=== PATIENT | female | born 1950 | race Hispanic/Latino ===

== ENCOUNTER 2018-08-24 07:20 | Observation (INO) | payer BC, OTHER ==
[2018-08-24 07:47] VITALS: BMI 32.8
--- NOTE | 2018-08-24 08:04 | ED PDOC ---
HPI: Chest Pain Time Seen by Provider: 08/24/18 07:37 Chief Complaint (Nursing): Chest Pain Chief Complaint (Provider): Chest discomfort History Per: Patient History/Exam Limitations: no limitations Onset/Duration Of Symptoms: Hrs (this morning) Current Symptoms Are (Timing): Still Present Associated Symptoms: denies: Dyspnea Additional Complaint(s): Beth Thurston is a 68 year old female, with no significant past medical history and not currently taking medications, who presents to the emergency department with onset for what she feels like is her heart pounding after it woke her up this morning. Patient states its not pain and not associated with shortness of breath. Pain does not radiate but is causing her severe discomfort. Patient reports her anxiety has increased lately because her recently . She has been following her PMD for gastroenteritis but states symptoms does not feel like gastroenteritis. She denies any other medical complaints. PMD: Dr. Germán Mallory, Past Medical History Reviewed: Historical Data, Nursing Documentation, Vital Signs Vital Signs: Last Vital Signs Temp 97 F L 08/24/18 07:42 Pulse 88 08/24/18 07:42 Resp 19 08/24/18 07:42 BP 104/50 L 08/24/18 07:42 Pulse Ox 100 08/24/18 07:42 - Medical History PMH: Gastritis - Surgical History Surgical History: No Surg Hx - Family History Family History: States: Unknown Family Hx - Home Medications Home Medications: Ambulatory Orders Medication Instructions Recorded No Known Home Med 12/22/14 - Allergies Allergies/Adverse Reactions: Allergies Allergy/AdvReac Type Severity Reaction Status Date / Time latex Allergy RASH Verified 08/24/18 07:51 Penicillins Allergy RASH Verified 08/24/18 07:52 Review of Systems ROS Statement: Except As Marked, All Systems Reviewed And Found Negative Cardiovascular: Positive for: Other (chest discomfort) Respiratory: Negative for: Shortness of Breath Psych: Positive for: Anxiety Physical Exam - Reviewed Nursing Documentation Reviewed: Yes Vital Signs Reviewed: Yes - Physical Exam Appears: Positive for: No Acute Distress Head Exam: Positive for: ATRAUMATIC, NORMOCEPHALIC Skin: Positive for: Normal Color, Warm, Dry Eye Exam: Positive for: Normal appearance, EOMI, PERRL Neck: Positive for: Painless ROM, Supple Cardiovascular/Chest: Positive for: Regular Rate, Rhythm. Negative for: Murmur Respiratory: Positive for: Normal Breath Sounds. Negative for: Respiratory Distress Gastrointestinal/Abdominal: Positive for: Normal Exam, Soft. Negative for: Tenderness, Guarding, Rebound Back: Positive for: Normal Inspection. Negative for: Vertebral Tenderness Extremity: Positive for: Normal ROM (upper and lower extremities). Negative for: Calf Tenderness, Deformity, Swelling Neurologic/Psych: Positive for: Alert, Oriented, Gait (steady) - Laboratory Results Result Diagrams: 08/24/18 08:38 08/24/18 08:38 - ECG Interpretation Of ECG: EKG shows PACs but no ST elevation O2 Sat by Pulse Oximetry: 100 (RA) Pulse Ox Interpretation: Normal Medical Decision Making Medical Decision Makin:37 Initial Impression: work up for cardiac etiology of chest discomfort. No indication of STEMI at this point. Patient on manager cardiac will give Nitro for chest pain, labs being sent, cxr and reassess patient. Initial Plan: --Type and screen --VBG --EKG --BNP --CMP --Lipase --Troponin I --CBC w/ differential --PTT --PT --Chest portable [RAD] --Nitrostat SL Tab 0.4mg SL --Pepcid 40 mg IVP --Reevaluation -Labs showed no clinical significant abnormalities. 09:29 -Troponin within normal limites. BNP slightly elevated. Patient reports relief of feeling of heart pounding. However, has a LUQ pain. Patient reports a worsening of her gastritis. At this point heart score of 4 so will admit patient for observation and will get a CT abdomen/pelvis due to exacerbation of LUQ pain. 11:45 -Patient seen by Dr. Terry who agrees patient should be held for obs, no acute intervention needed at this time. Will hold off on CT abdomen so that patient can remain on the manager cardiac. Abdomen CT is not urgent at this point. -Spoke with Dr. Joseph who requests repeat troponin at x4 hrs and echo. Orders to be placed and patient to be admitted. Scribe Attestation: Documented by Roberto Ochoa, acting as a scribe for Kim Kwon MD. Provider Scribe Attestation: All medical record entries made by the Scribe were at my direction and personally dictated by me. I have reviewed the chart and agree that the record accurately reflects my personal performance of the history, physical exam, medical decision making, and the department course for this patient. I have also personally directed, reviewed, and agree with the discharge instructions and disposition. Disposition - Disposition
[2018-08-24 08:17] LABS: VENOUS BLOOD GAS BASE EXCESS 2.3 mmol/L (0.0-2.0); VENOUS BLOOD GAS PCO2 39 mmHg (40-60); VENOUS BLOOD GAS PO2 40 mm/Hg (30-55); VENOUS BLOOD PH 7.44 (7.32-7.43)
[2018-08-24 08:42] LABS: BASO # 0.1 K/uL (0.0-0.2); BASO % 0.7 % (0.0-2.0); EOS % 0.6 % (0.0-4.0); HEMOGLOBIN 14.1 g/dL (12.0-16.0); LYMPH # 1.2 K/uL (1.0-4.3); LYMPH % 16.1 % (20.0-40.0); MEAN CELL VOLUME 90.3 fl (81.0-99.0); MEAN CORPUSCULAR HGB CONC 34.3 g/dL (33.0-37.0); MONO # 0.6 K/uL (0.0-0.8); MONO % 7.6 % (0.0-10.0); NEUT # 5.6 K/uL (1.8-7.0); RBC 4.55 Mil/uL (3.80-5.20); RED CELL DISTRIBUTION WIDTH 13.8 % (11.5-14.5); WHITE BLOOD COUNT 7.5 K/uL (4.8-10.8)
[2018-08-24 08:50] LABS: PROTHROMBIN TIME 11.6 Seconds (9.8-13.1)
[2018-08-24 08:52] LABS: ALB/GLOB RATIO 1.2 (1.0-2.1); ALBUMIN 4.1 g/dL (3.5-5.0); ALT/SGPT 21 U/L (9-52); AST/SGOT 26 U/L (14-36); BLOOD UREA NITROGEN 23 mg/dl (7-17); CALCIUM 9.7 mg/dL (8.4-10.2); GFR NON-AFRICAN AMERICAN > 60; LIPASE 155 U/L (23-300); PARTIAL THROMBOPLASTIN TIME 28.7 Seconds (25.6-37.1)
[2018-08-24 09:03] LABS: B-TYPE NATRIURETIC PEPTIDE 1840 pg/ml (0-900)
--- NOTE | 2018-08-24 09:34 | RAD ---
Date of service: 08/24/2018 HISTORY: possible admission COMPARISON: No prior. FINDINGS: LUNGS: Increased reticular markings are questioned at the medial right base, potentially a function of crowding of the bronchovascular markings given rotation of the patient toward the left. No airspace disease bilaterally. PLEURA: No significant pleural effusion identified, no pneumothorax apparent. CARDIOVASCULAR: Normal. OSSEOUS STRUCTURES: No significant abnormalities. VISUALIZED UPPER ABDOMEN: Normal. OTHER FINDINGS: None. IMPRESSION: Reticular markings are somewhat prominent the medial right base could be a function of crowding of the bronchovascular markings related to left obliquity. No alveolitis pleural effusion or pneumothorax bilaterally. No pulmonary vascular congestion.
[2018-08-24] MEDS ORDERED: Iohexol 240 (50 ml) PO ONE (09:40)
--- NOTE | 2018-08-24 11:04 | CARD ---
APPROVED REPORT Date of service: 08/24/2018 EKG Measurement Heart [id number] <Conclusion> Sinus rhythm with 1st degree AV block with premature atrial complexes Right bundle branch block Left anterior fascicular block Bifascicular block Abnormal ECG
--- NOTE | 2018-08-24 11:58 | CP.PCM.CON ---
History of Present Illness - History of Present Illness History of Present Illness: This 68-year-old female came into the hospital complaining of chest tightness which occurred while she was resting in bed. The patient has a history of right breast malignancy for which she underwent mastectomy followed by chemotherapy 15 years back and has not had any recurrence. Follow-up indicates that this malignancy is in remission. She is fairly active and goes up-and-down flight of stairs and activities of daily living without any chest discomfort. She is not a smoker or diabetic and she is not a hypertensive. There is no significant family history of vascular disease. She gives history of gastroesophageal reflux. This discomfort did not radiate to her jaw or arms. It was not accompanied by any perspiration nausea vomiting or sudden shortness of breath. She does describe a brief period of palpitations which spontaneously resolved. Physical examination shows an elderly overweight female who is anxious but quite comfortable at rest and can lay virtually flat and carry on a conversation. She has a heart rate of 82 bpm regular and a blood pressure of 134/74 mmHg. Her j ugular venous pressure was not elevated and there was no edema over lower extremities. Pedal pulses were well felt. There were no carotid bruits. There was evidence of right mastectomy. Thyroid was not enlarged. The apex was not palpable. The first and second heart sounds were normal. There was no murmur or gallop. There were no rales. Her abdomen was soft and liver and spleen are not palpable. Her electro-cardial gram showed sinus rhythm with evidence of a right bundle branch block and a left axis deviation. No Q waves were detected on the cardiogram. Her cardiac enzymes show a normal troponin level. The rest of her labs were noted. Impression: Atypical chest pain. No evidence of acute coronary syndrome in the form of ST changes on electrocardiogram suggestive of ischemia or abnormal tro ponins. The patient at this juncture is free of chest discomfort and her vital signs are stable. Follow-up cardiac enzymes will be drawn. She will be observed on a telemetry floor. Past Patient History - Infectious Disease Hx of Infectious Diseases: None - Past Social History Smoking Status: Never Smoked - GASTROINTESTINAL Hx Gastritis: Yes - PSYCHIATRIC Hx Substance Use: No - SURGICAL HISTORY Hx Mastectomy: Yes (rt. breast) Meds Allergies/Adverse Reactions: Allergies Allergy/AdvReac Type Severity Reaction Status Date / Time latex Allergy RASH Verified 08/24/18 07:51 Penicillins Allergy RASH Verified 08/24/18 07:52 Results - Vital Signs Recent Vital Signs: Last Vital Signs Temp 98.1 F 08/24/18 11:17 Pulse 101 H 08/24/18 11:17 Resp 16 08/24/18 11:17 BP 120/49 L 08/24/18 11:17 Pulse Ox 95 08/24/18 11:17 - Labs Result Diagrams: 08/24/18 08:38 08/24/18 08:38 Labs: Laboratory Results - last 24 hr 08/24/18 08/24/18 08/24/18 08:14 08:38 08:38 WBC 7.5 RBC 4.55 Hgb 14.1 Hct 41.1 MCV 90.3 MCH 31.0 MCHC 34.3 RDW 13.8 Plt Count 218 MPV 8.0 Neut % (Auto) 75.0 Lymph % (Auto) 16.1 L [place] % (Auto) 7.6 Eos % (Auto) 0.6 Baso % (Auto) 0.7 Neut # (Auto) 5.6 Lymph # (Auto) 1.2 [place] # (Auto) 0.6 Eos # (Auto) 0.0 Baso # (Auto) 0.1 PT INR APTT pO2 40 VBG pH 7.44 H VBG pCO2 39 L VBG HCO3 26.2 VBG Total CO2 27.7 VBG O2 Sat (Calc) 80.3 H VBG Base Excess 2.3 H VBG Potassium 3.6 Sodium 137.0 139 Chloride 104.0 104 Glucose 108 H Lactate 1.9 FiO2 21.0 Potassium 4.0 Carbon Dioxide 26 Anion Gap 13 BUN 23 H Creatinine 0.6 L Est GFR ( Amer) > 60 Est GFR (Non-Af Amer) > 60 POC Glucose (mg/dL) Random Glucose 108 H Calcium 9.7 Total Bilirubin 0.7 AST 26 ALT 21 Alkaline Phosphatase 47 Troponin I 0.0150 NT-Pro-B Natriuret Pep 1840 H Total Protein 7.4 Albumin 4.1 Globulin 3.3 Albumin/Globulin Ratio 1.2 Lipase 155 Venous Blood Potassium 3.6 Blood Type Blood Type Confirm Antibody Screen BBK History Checked 08/24/18 08/24/18 08/24/18 08:38 08:38 08:48 WBC RBC Hgb Hct MCV MCH MCHC RDW Plt Count MPV Neut % (Auto) Lymph % (Auto) [place] % (Auto) Eos % (Auto) Baso % (Auto) Neut # (Auto) Lymph # (Auto) [place] # (Auto) Eos # (Auto) Baso # (Auto) PT 11.6 INR 1.0 APTT 28.7 pO2 VBG pH VBG pCO2 VBG HCO3 VBG Total CO2 VBG O2 Sat (Calc) VBG Base Excess VBG Potassium Sodium Chloride Glucose Lactate FiO2 Potassium Carbon Dioxide Anion Gap BUN Creatinine Est GFR ( Amer) Est GFR (Non-Af Amer) POC Glucose (mg/dL) 72 Random Glucose Calcium Total Bilirubin AST ALT Alkaline Phosphatase Troponin I NT-Pro-B Natriuret Pep Total Protein Albumin Globulin Albumin/Globulin Ratio Lipase Venous Blood Potassium Blood Type A POSITIVE Blood Type Confirm Antibody Screen Negative BBK History Checked No verified bt 08/24/18 09:02 WBC RBC Hgb Hct MCV MCH MCHC RDW Plt Count MPV Neut % (Auto) Lymph % (Auto) [place] % (Auto) Eos % (Auto) Baso % (Auto) Neut # (Auto) Lymph # (Auto) [place] # (Auto) Eos # (Auto) Baso # (Auto) PT INR APTT pO2 VBG pH VBG pCO2 VBG HCO3 VBG Total CO2 VBG O2 Sat (Calc) VBG Base Excess VBG Potassium Sodium Chloride Glucose Lactate FiO2 Potassium Carbon Dioxide Anion Gap BUN Creatinine Est GFR ( Amer) Est GFR (Non-Af Amer) POC Glucose (mg/dL) Random Glucose Calcium Total Bilirubin AST ALT Alkaline Phosphatase Troponin I NT-Pro-B Natriuret Pep Total Protein Albumin Globulin Albumin/Globulin Ratio Lipase Venous Blood Potassium Blood Type Blood Type Confirm A POSITIVE Antibody Screen BBK History Checked
[2018-08-24] MEDS: Enoxaparin 40 mg Syringe SC SCH (12:35)
[2018-08-24] MEDS ORDERED: Influenza Vaccine 60 MCG/0.5 ML SYR (3 yr & up) IM ONE (15:42)
[2018-08-25 05:02] VITALS: O2SAT 100
--- NOTE | 2018-08-25 07:29 | CP.PCM.HP ---
<Sultan Fani - Last Filed: 08/25/18 10:16> History of Present Illness - History of Present Illness History of Present Illness: 68 yo female pmhx gastritis and breast CA s/p right breast mastectomy >15 yrs ago presented to ED yesterday with complaints of palpitation and chest tightness after she woke up this morning. Denies any chest pain radiation to arm or neck. Denies shortness of breath, dyspnea on exertion, nausea, vomiting, headache, dizziness or focal weakness. Denies any hx CAD, DMII or HTN. Patient is admitted to telemetry for evaluation of chest pain. ROS: all 12 systems reviewed and negative except as mentioned in HPI PMHX: gastritis, breast CA PSHX: right breast mastectomy >15 yrs ago Social hx: denies smoking cigarettes, drinks socially. Denies any recreational drug uses Family hx: denies family hx DMII, HTN or CAD Medications: none Allergies: Penicillin, latex Present on Admission - Present on Admission Any Indicators Present on Admission: No Review of Systems - Review of Systems All systems: reviewed and no additional remarkable complaints except (as mentioned in HPI) Past Patient History - Infectious Disease Hx of Infectious Diseases: None - Past Medical History & Family History Past Medical History?: Yes - Past Social History Smoking Status: Never Smoked - CARDIAC Hx Cardiac Disorders: No - PULMONARY Hx Respiratory Disorders: No - NEUROLOGICAL Hx Neurological Disorder: No - HEENT Hx HEENT Problems: No - RENAL Hx Chronic Kidney Disease: No - ENDOCRINE/METABOLIC Hx Endocrine Disorders: No - HEMATOLOGICAL/ONCOLOGICAL Hx Blood Disorders: No Hx AIDS: No Hx Human Immunodeficiency Virus (HIV): No - INTEGUMENTARY Hx Dermatological Problems: No - MUSCULOSKELETAL/RHEUMATOLOGICAL Hx Musculoskeletal Disorders: No Hx Falls: No - GASTROINTESTINAL Hx Gastrointestinal Disorders: Yes Hx Gastritis: Yes - GENITOURINARY/GYNECOLOGICAL Hx Genitourinary Disorders: No - PSYCHIATRIC Hx Psychophysiologic Disorder: No Hx Substance Use: No - SURGICAL HISTORY Hx Surgeries: Yes Hx Mastectomy: Yes (right breast) - ANESTHESIA Hx Anesthesia: Yes Hx Anesthesia Reactions: No Hx Malignant Hyperthermia: No Has any member of the family had a problem w/ anesthesia?: No Meds Allergies/Adverse Reactions: Allergies Allergy/AdvReac Type Severity Reaction Status Date / Time latex Allergy RASH Verified 08/24/18 07:51 Penicillins Allergy RASH Verified 08/24/18 07:52 Physical Exam - Constitutional Appears: Non-toxic, No Acute Distress - Head Exam Head Exam: ATRAUMATIC, NORMOCEPHALIC - Eye Exam Eye Exam: EOMI, Normal appearance, PERRL - ENT Exam ENT Exam: Mucous Membranes Moist - Neck Exam Neck exam: Positive for: Full Rom, Normal Inspection - Respiratory Exam Respiratory Exam: Clear to Auscultation Bilateral, NORMAL BREATHING PATTERN. absent: Rhonchi, Wheezes - Cardiovascular Exam Cardiovascular Exam: REGULAR RHYTHM, +S1, +S2 - GI/Abdominal Exam GI & Abdominal Exam: Normal Bowel Sounds, Soft. absent: Tenderness - Extremities Exam Extremities exam: Positive for: normal inspection. Negative for: calf tenderness, pedal edema - Neurological Exam Neurological exam: Alert, CN II-XII Intact, Oriented x3 - Psychiatric Exam Psychiatric exam: Normal Affect, Normal Mood - Skin Skin Exam: Normal Color, Warm Results - Vital Signs Recent Vital Signs: Last Vital Signs Temp 97.8 F 08/25/18 05:00 Pulse 73 08/25/18 05:00 Resp 18 08/25/18 05:00 BP 117/74 08/25/18 05:00 Pulse Ox 100 08/25/18 05:00 - Labs Result Diagrams: 08/24/18 08:38 08/24/18 08:38 Labs: Laboratory Results - last 24 hr 08/24/18 08/24/18 08/24/18 08:14 08:38 08:38 WBC 7.5 RBC 4.55 Hgb 14.1 Hct 41.1 MCV 90.3 MCH 31.0 MCHC 34.3 RDW 13.8 Plt Count 218 MPV 8.0 Neut % (Auto) 75.0 Lymph % (Auto) 16.1 L [place] % (Auto) 7.6 Eos % (Auto) 0.6 Baso % (Auto) 0.7 Neut # (Auto) 5.6 Lymph # (Auto) 1.2 [place] # (Auto) 0.6 Eos # (Auto) 0.0 Baso # (Auto) 0.1 PT INR APTT pO2 40 VBG pH 7.44 H VBG pCO2 39 L VBG HCO3 26.2 VBG Total CO2 27.7 VBG O2 Sat (Calc) 80.3 H VBG Base Excess 2.3 H VBG Potassium 3.6 Sodium 137.0 139 Chloride 104.0 104 Glucose 108 H Lactate 1.9 FiO2 21.0 Potassium 4.0 Carbon Dioxide 26 Anion Gap 13 BUN 23 H Creatinine 0.6 L Est GFR ( Amer) > 60 Est GFR (Non-Af Amer) > 60 POC Glucose (mg/dL) Random Glucose 108 H Calcium 9.7 Total Bilirubin 0.7 AST 26 ALT 21 Alkaline Phosphatase 47 Troponin I 0.0150 NT-Pro-B Natriuret Pep 1840 H Total Protein 7.4 Albumin 4.1 Globulin 3.3 Albumin/Globulin Ratio 1.2 Lipase 155 Venous Blood Potassium 3.6 Blood Type Blood Type Confirm Antibody Screen BBK History Checked 08/24/18 08/24/18 08/24/18 08:38 08:38 08:48 WBC RBC Hgb Hct MCV MCH MCHC RDW Plt Count MPV Neut % (Auto) Lymph % (Auto) [place] % (Auto) Eos % (Auto) Baso % (Auto) Neut # (Auto) Lymph # (Auto) [place] # (Auto) Eos # (Auto) Baso # (Auto) PT 11.6 INR 1.0 APTT 28.7 pO2 VBG pH VBG pCO2 VBG HCO3 VBG Total CO2 VBG O2 Sat (Calc) VBG Base Excess VBG Potassium Sodium Chloride Glucose Lactate FiO2 Potassium Carbon Dioxide Anion Gap BUN Creatinine Est GFR ( Amer) Est GFR (Non-Af Amer) POC Glucose (mg/dL) 72 Random Glucose Calcium Total Bilirubin AST ALT Alkaline Phosphatase Troponin I NT-Pro-B Natriuret Pep Total Protein Albumin Globulin Albumin/Globulin Ratio Lipase Venous Blood Potassium Blood Type A POSITIVE Blood Type Confirm Antibody Screen Negative BBK History Checked No verified bt 08/24/18 08/24/18 09:02 13:23 WBC RBC Hgb Hct MCV MCH MCHC RDW Plt Count MPV Neut % (Auto) Lymph % (Auto) [place] % (Auto) Eos % (Auto) Baso % (Auto) Neut # (Auto) Lymph # (Auto) [place] # (Auto) Eos # (Auto) Baso # (Auto) PT INR APTT pO2 VBG pH VBG pCO2 VBG HCO3 VBG Total CO2 VBG O2 Sat (Calc) VBG Base Excess VBG Potassium Sodium Chloride Glucose Lactate FiO2 Potassium Carbon Dioxide Anion Gap BUN Creatinine Est GFR ( Amer) Est GFR (Non-Af Amer) POC Glucose (mg/dL) Random Glucose Calcium Total Bilirubin AST ALT Alkaline Phosphatase Troponin I 0.0160 NT-Pro-B Natriuret Pep Total Protein Albumin Globulin Albumin/Globulin Ratio Lipase Venous Blood Potassium Blood Type Blood Type Confirm A POSITIVE Antibody Screen BBK History Checked Assessment & Plan - Assessment and Plan (Free Text) Assessment: Assessment: 68 yo female pmhx breast CA s/p right breast mastectomy >15 yrs ago presented to ED yesterday with complaints of palpitation and chest tightness after she woke up this morning. Patient is admitted to telemetry for evaluation of chest pain. Plan: Admit to orthodontic technician assistant vitals Cardiology Consult appreciated Dr. Terry Monitor serial of troponin x 3 EKG ECHO labs DVT prophylaxis Patient seen and examined with Dr. Joseph this morning. Sultan Mohr, [id number] <Justino Joseph - Last Filed: 08/26/18 20:35> Results - Vital Signs Recent Vital Signs: Last Vital Signs Temp 97.7 F 08/25/18 08:10 Pulse 75 08/25/18 09:00 Resp 20 08/25/18 08:10 BP 124/78 08/25/18 08:10 Pulse Ox 100 08/25/18 08:10 - Labs Result Diagrams: 08/24/18 08:38 08/24/18 08:38 Assessment & Plan - Assessment and Plan (Free Text) Assessment: Patient was personally seen and examined by me in rounds with residents. Available labs and diagnostic data reviewed. Case, Patient's condition and management plan discussed with residents in rounds. Agree with resident's progress note. Plan: As ordered.
[2018-08-25 08:10] VITALS: BP 124/78; RESP 20; TEMP 97.7
--- NOTE | 2018-08-25 09:26 | CARD ---
APPROVED REPORT Date of service: 08/25/2018 EKG Measurement Heart [id number] <Conclusion> Sinus rhythm with 1st degree AV block with occasional premature ventricular complexes Right bundle branch block Left anterior fascicular block Bifascicular block Abnormal ECG
[2018-08-25] MEDS: Enoxaparin 40 mg Syringe SC SCH (09:36)
--- NOTE | 2018-08-25 10:11 | CARD ---
APPROVED REPORT Date of service: 08/25/2018 EXAM: Two-dimensional and M-mode echocardiogram with Doppler and color Doppler. Other Information Quality : GoodRhythm : NSR INDICATION ELEVATED PRO BNP 2D DIMENSIONS IVSd1.09 (0.7-1.1cm)LVDd5.59 (3.9-5.9cm) LVOT Diameter1.87 (1.8-2.4cm)PWd1.17 (0.7-1.1cm) IVSs1.37 (0.8-1.2cm)LVDs4.68 (2.5-4.0cm) FS (%) 16.4 %PWs1.18 (0.8-1.2cm) M-Mode DIMENSIONS Left Atrium (MM)3.21 (2.5-4.0cm)IVSd0.85 (0.7-1.1cm) Aortic Root3.09 (2.2-3.7cm)LVDd7.06 (4.0-5.6cm) Aortic Cusp Exc.1.79 (1.5-2.0cm)PWd0.88 (0.7-1.1cm) IVSs1.44 cmFS (%) 22 % LVDs5.50 (2.0-3.8cm)PWs1.12 cm Mitral Valve E/A ratio0.0 TDI E/Lateral E'0.0E/Medial E'0.0 Tricuspid Valve TR Peak [id number] Peak Gr.16mmHg [id number] LEFT VENTRICLE The left ventricle is normal size. There is normal left ventricular wall thickness. Lv systolic function was moderately depressed.Lvef was -40% -40% There was moderate generalised hypokinesia Transmitral Doppler flow pattern is Grade I-abnormal relaxation pattern. RIGHT VENTRICLE The right ventricle is normal size. There is normal right ventricular wall thickness. The right ventricular systolic function is normal. ATRIA The left atrium size is normal. The right atrium size is normal. AORTIC VALVE The aortic valve is normal in structure. No aortic regurgitation is present. There is no aortic valvular stenosis. MITRAL VALVE Mitral annular calcification is mild to moderate. There is no evidence of mitral valve prolapse. There is no mitral valve stenosis. Mitral regurgitation is mild. TRICUSPID VALVE The tricuspid valve is normal in structure. There is mild tricuspid regurgitation. Right ventricular systolic pressure is estimated at 26 mmHg. There is no pulmonary hypertension. PULMONIC VALVE The pulmonary valve is normal in structure. There is no pulmonic valvular regurgitation. GREAT VESSELS The aortic root is normal in size. The IVC is normal in size and collapses >50% with inspiration. PERICARDIAL EFFUSION The pericardium appears normal. <Conclusion> The left ventricle is normal size. There is normal left ventricular wall thickness. There was moderate generalised hypokinesia Lv systolic function was moderately depressed.LVEF was -40% Transmitral Doppler flow pattern is Grade I-abnormal relaxation pattern.
--- NOTE | 2018-08-25 10:16 | CP.PCM.PN ---
Subjective - Date & Time of Evaluation Date of Evaluation: 08/25/18 Time of Evaluation: 08:40 - Subjective Subjective: The patient was symptom free overnight. She denied any further chest pains or shortness of breath. Her physical examination this morning shows a heart rate of 68 bpm regular and a blood pressure of 136/74 mmHg. Her jugular venous pressure was not elevated and there were no rales or gallop rhythm. Her electro-cardial gram this morning again shows sinus rhythm with a pattern of right bundle branch block and a left axis deviation. No fresh Q waves were detected on the cardiogram. A second set of troponin again was within normal limits. An acute coronary syndrome was ruled out. Review off her echocardiogram shows a moderately depressed left ventricular systolic function. There is no segmental regional wall motion abnormality. 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 The patient is hemodynamically stable and has no symptom pertaining to this finding. The patient may be allowed to return home and follow-up with her own physician. This finding can be managed as an outpatient. No particular new intervention need be undertaken at this juncture. Objective - Vital Signs/Intake and Output Vital Signs (last 24 hours): Temp Pulse Resp BP Pulse Ox 97.7 F 73 20 124/78 100 08/25/18 08:10 08/25/18 08:10 08/25/18 08:10 08/25/18 08:10 08/25/18 08:10 - Medications Medications: Current Medications Aspirin (Aspirin Chewable) 81 mg PO DAILY [facility] Last Admin: 08/25/18 09:35 Dose: 81 mg Enoxaparin Sodium (Lovenox) 40 mg SC DAILY [facility]; Protocol Last Admin: 08/25/18 09:36 Dose: 40 mg - Labs Labs: 08/24/18 08:38 08/24/18 08:38 PT 11.6 Seconds (9.8-13.1) 08/24/18 08:38 INR 1.0 08/24/18 08:38 APTT 28.7 Seconds (25.6-37.1) 08/24/18 08:38
--- NOTE | 2018-08-25 12:07 | CP.PCM.DIS ---
Provider - Provider Date of Admission: 08/24/18 11:44 Attending physician: Justino Joseph MD Primary care physician: Non [facility] Provider Time Spent in preparation of Discharge (in minutes): 30 Diagnosis - Discharge Diagnosis (1) Atypical chest pain Status: Resolved (2) Palpitation Status: Resolved Hospital Course - Lab Results Lab Results: Most Recent Lab Values WBC 7.5 K/uL (4.8-10.8) 08/24/18 08:38 RBC 4.55 Mil/uL (3.80-5.20) 08/24/18 08:38 Hgb 14.1 g/dL (12.0-16.0) 08/24/18 08:38 Hct 41.1 % (34.0-47.0) 08/24/18 08:38 MCV 90.3 fl (81.0-99.0) 08/24/18 08:38 MCH 31.0 pg (27.0-31.0) 08/24/18 08:38 MCHC 34.3 g/dL (33.0-37.0) 08/24/18 08:38 RDW 13.8 % (11.5-14.5) 08/24/18 08:38 Plt Count 218 K/uL (130-400) 08/24/18 08:38 MPV 8.0 fl (7.2-11.7) 08/24/18 08:38 Neut % (Auto) 75.0 % (50.0-75.0) 08/24/18 08:38 Lymph % (Auto) 16.1 % (20.0-40.0) L 08/24/18 08:38 [place] % (Auto) 7.6 % (0.0-10.0) 08/24/18 08:38 Eos % (Auto) 0.6 % (0.0-4.0) 08/24/18 08:38 Baso % (Auto) 0.7 % (0.0-2.0) 08/24/18 08:38 Neut # (Auto) 5.6 K/uL (1.8-7.0) 08/24/18 08:38 Lymph # (Auto) 1.2 K/uL (1.0-4.3) 08/24/18 08:38 [place] # (Auto) 0.6 K/uL (0.0-0.8) 08/24/18 08:38 Eos # (Auto) 0.0 K/uL (0.0-0.7) 08/24/18 08:38 Baso # (Auto) 0.1 K/uL (0.0-0.2) 08/24/18 08:38 PT 11.6 Seconds (9.8-13.1) 08/24/18 08:38 INR 1.0 08/24/18 08:38 APTT 28.7 Seconds (25.6-37.1) 08/24/18 08:38 pO2 40 mm/Hg (30-55) 08/24/18 08:14 VBG pH 7.44 (7.32-7.43) H 08/24/18 08:14 VBG pCO2 39 mmHg (40-60) L 08/24/18 08:14 VBG HCO3 26.2 mmol/L 08/24/18 08:14 VBG Total CO2 27.7 mmol/L (22-28) 08/24/18 08:14 VBG O2 Sat (Calc) 80.3 % (40-65) H 08/24/18 08:14 VBG Base Excess 2.3 mmol/L (0.0-2.0) H 08/24/18 08:14 VBG Potassium 3.6 mmol/L (3.6-5.2) 08/24/18 08:14 Sodium 137.0 mmol/L (132-148) 08/24/18 08:14 Chloride 104.0 mmol/L (98-107) 08/24/18 08:14 Glucose 108 mg/dL (65-105) H 08/24/18 08:14 Lactate 1.9 mmol/L (0.7-2.1) 08/24/18 08:14 FiO2 21.0 % 08/24/18 08:14 Sodium 139 mmol/l (132-148) 08/24/18 08:38 Potassium 4.0 MMOL/L (3.6-5.0) 08/24/18 08:38 Chloride 104 mmol/L (98-107) 08/24/18 08:38 Carbon Dioxide 26 mmol/L (22-30) 08/24/18 08:38 Anion Gap 13 (10-20) 08/24/18 08:38 BUN 23 mg/dl (7-17) H 08/24/18 08:38 Creatinine 0.6 mg/dl (0.7-1.2) L 08/24/18 08:38 Est GFR ( Amer) > 60 08/24/18 08:38 Est GFR (Non-Af Amer) > 60 08/24/18 08:38 POC Glucose (mg/dL) 72 mg/dL (65-110) 08/24/18 08:48 Random Glucose 108 mg/dL (65-105) H 08/24/18 08:38 Hemoglobin A1c 5.2 % (4.2-6.5) 08/25/18 08:10 Calcium 9.7 mg/dL (8.4-10.2) 08/24/18 08:38 Total Bilirubin 0.7 mg/dl (0.2-1.3) 08/24/18 08:38 AST 26 U/L (14-36) 08/24/18 08:38 ALT 21 U/L (9-52) 08/24/18 08:38 Alkaline Phosphatase 47 U/L (38-126) 08/24/18 08:38 Troponin I 0.0160 ng/mL (0.00-0.120) 08/24/18 13:23 NT-Pro-B Natriuret Pep 1840 pg/ml (0-900) H 08/24/18 08:38 Total Protein 7.4 G/DL (6.3-8.2) 08/24/18 08:38 Albumin 4.1 g/dL (3.5-5.0) 08/24/18 08:38 Globulin 3.3 gm/dL (2.2-3.9) 08/24/18 08:38 Albumin/Globulin Ratio 1.2 (1.0-2.1) 08/24/18 08:38 Triglycerides 105 mg/DL (0-149) 08/25/18 08:10 Cholesterol 173 mg/dL (0-199) 08/25/18 08:10 LDL Cholesterol Direct 86 mg/dL (0-129) 08/25/18 08:10 HDL Cholesterol 52 MG/DL (30-70) 08/25/18 08:10 Lipase 155 U/L (23-300) 08/24/18 08:38 Vitamin B12 612 pg/mL (239-931) 08/25/18 08:10 TSH 3rd Generation 2.99 mIU/ML (0.46-4.68) 08/25/18 08:10 Venous Blood Potassium 3.6 mmol/L (3.6-5.2) 08/24/18 08:14 Blood Type A POSITIVE 08/24/18 08:38 Blood Type Confirm A POSITIVE 08/24/18 09:02 Antibody Screen Negative 08/24/18 08:38 BBK History Checked No verified bt 08/24/18 08:38 - Hospital Course Hospital Course: 68 yo female pmhx gastritis and breast CA s/p right breast mastectomy >15 yrs ago presented to ED on 08/24/18 with complaints of palpitation and chest tightness after she woke up that morning. Denies any chest pain radiation to arm or neck. Denies shortness of breath, dyspnea on exertion, nausea, vomiting, headache, dizziness or focal weakness. Denies any hx CAD, DMII or HTN. Patient was dmitted to telemetry for evaluation of chest pain. Assistant Commissioner Dr. Terry were involved during patients care. Patient had neg troponin x 3, EKG showed shows sinus rhythm with a pattern of right bundle branch block and a left axis deviation. No fresh Q waves were detected on the cardiogram. Echocardiogram shows a moderately depressed left ventricular systolic function. There is no segmental regional wall motion abnormality. 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 Patient is medically stable to discharge home and advised to f/u with her PMD and discuss about the ECHO results. Discharge Exam - Head Exam Head Exam: ATRAUMATIC, NORMOCEPHALIC - Eye Exam Eye Exam: Normal appearance. absent: Scleral icterus - ENT Exam ENT Exam: Mucous Membranes Moist - Respiratory Exam Respiratory Exam: Clear to PA & Lateral, NORMAL BREATHING PATTERN. absent: Wheezes, Respiratory Distress - Cardiovascular Exam Cardiovascular Exam: REGULAR RHYTHM, +S1, +S2 - GI/Abdominal Exam GI & Abdominal Exam: Normal Bowel Sounds, Soft. absent: Tenderness - Neurological Exam Neurological exam: Alert, Oriented x3 - Psychiatric Exam Psychiatric exam: Normal Affect, Normal Mood - Skin Skin Exam: Normal Color, Warm Discharge Plan - Follow Up Plan Condition: GOOD Disposition: HOME/ ROUTINE Instructions: Chest Pain (DC) Additional Instructions: follow up with pmd in 1 week Referrals: Justino Joseph MD [Staff Provider] - Lucas Terry MD [Staff Provider] - Non [facility] Provider, [Primary Care Provider] -
[2018-08-25 12:10] VITALS: PULSE 75
== END 2018-08-25 13:01 | disposition home or self-care (01) ==
LOC: H.ER 07:20 → SUPCPDRO 07:20 → H.ERHOLD 11:44 → H.TEL 13:25
PROVIDERS: ADMIT Internal Medicine; ATTEND Internal Medicine
DX: R07.89 Other chest pain (principal); K21.9 Gastro-esophageal reflux disease without esophagitis; Z85.3 Personal history of malignant neoplasm of breast; Z90.11 Acquired absence of right breast and nipple; F41.9 Anxiety disorder, unspecified; K29.70 Gastritis, unspecified, without bleeding; Z23 Encounter for immunization; K52.9 Noninfective gastroenteritis and colitis, unspecified; R00.2 Palpitations; E66.3 Overweight; Z68.32 Body mass index [BMI] 32.0-32.9, adult; I45.10 Unspecified right bundle-branch block
CPT/HCPCS: 36415; 71045; 80053; 80061; 82607; 82803; 82948; 83036; 83690; 83880; 84443; 84484; 85025; 85610; 85730; 86850; 86900; 90674; 93005; 93306; 96372; 96374; 99282; G0008; G0378; J1650